=== PATIENT | female | born 1995 | race Caucasian/White ===

== ENCOUNTER 2021-06-20 08:15 | Emergency (ER) | payer OTHER ==
[2021-06-20 10:44] LABS: BASOPHIL 0.3 % (0-2); EOSINOPHIL 0.3 % (0-5); HCT 41.2 % (37.0-47.0); HGB 13.3 g/dl (12.5-16.0); LYMPHOCYTE 9.6 % (15-48); MCHC 32.3 g/dL (32.0-36.0); MCV 80.6 fL (78.0-100.0); MONOCYTE 6.1 % (0-12); MPV 10.5 fL (6.0-9.5); NEUTROPHIL 82.6 % (41-80); NRBC 0; PLT 281 K/uL (150-400); RBC 5.11 M/uL (4.20-5.40); RDW 14.5 % (11.5-14.0); WBC 23.3 K/uL (4.0-10.5)
[2021-06-20 11:10] LABS: ALBUMIN 2.9 g/dL (3.4-5.0); BUN/CREAT RATIO (CALC) 15.3 RATIO; CREATININE 0.59 mg/dL (0.51-0.95); MAGNESIUM 1.8 mg/dL (1.8-2.4); TOTAL PROTEIN 6.9 g/dL (6.4-8.2)
[2021-06-20] MEDS ORDERED: KEFLEX250 MG PO (12:36)
[2021-06-20] MEDS ORDERED: NORCO 5-325 TA1 EACH PO (12:36)
== END 2021-06-20 13:08 | disposition home or self-care (01) ==
LOC: FER 08:15
PROVIDERS: Emergency Medicine
DX: S92.151A Displaced avulsion fracture (chip fracture) of right talus, initial encounter for closed fracture (principal); S30.1XXA Contusion of abdominal wall, initial encounter; M25.512 Pain in left shoulder; R07.9 Chest pain, unspecified; V43.52XA Car driver injured in collision with other type car in traffic accident, initial encounter; Y92.410 Unspecified street and highway as the place of occurrence of the external cause
CPT/HCPCS: 36415; 71260; 73600; 80053; 83690; 83735; 84703; 85025; J7030; Q9967

== ENCOUNTER 2021-06-25 01:06 | Emergency (ER) | payer OTHER ==
[~2021-06-25 01:06] MED LIST: KEFLEX250 MG PO; NORCO 5-325 TA1 EACH PO
[2021-06-25] MEDS ORDERED: MEDROL 4MG DOSEP4 MG PO (04:41)
[2021-06-25] MEDS ORDERED: IBUPROFEN800 MG PO (04:41)
[2021-06-25] MEDS ORDERED: PERCOCET 5-3251 EACH PO (04:41)
[2021-06-25] MEDS ORDERED: CYCLOBENZAPRINE10 MG PO (04:41)
== END 2021-06-25 04:53 | disposition home or self-care (01) ==
LOC: FER 01:06
DX: S13.4XXA Sprain of ligaments of cervical spine, initial encounter (principal); S23.3XXA Sprain of ligaments of thoracic spine, initial encounter; R10.84 Generalized abdominal pain; R07.9 Chest pain, unspecified; Z79.891 Long term (current) use of opiate analgesic; Z79.899 Other long term (current) drug therapy; V49.00XA Driver injured in collision with unspecified motor vehicles in nontraffic accident, initial encounter; Y92.410 Unspecified street and highway as the place of occurrence of the external cause
CPT/HCPCS: 72125; 72128; J1100; J1170; J1885; J2405; J2800; J7050